=== PATIENT | male | born 2000 | race Hispanic/Latino ===

== ENCOUNTER 2022-01-30 21:10 | Emergency (ER) | payer SELFPAY ==
[~2022-01-30] VITALS: Ht 175.3 cm; Wt 95.3 kg
[2022-01-30 21:15] VITALS: BP 148/82
[2022-01-30] MEDS ORDERED: ACETAMINOPHEN 500 MG TABLET PO ONE (21:30)
[2022-01-30] MEDS ORDERED: GUAIFENESIN-DM 200/20 MG 10 ML PO ONE (21:30)
[2022-01-30] MEDS ORDERED: D-ME1POW16 PO (21:55)
== END 2022-01-30 22:25 | disposition home or self-care (01) ==
LOC: EDH 21:10
DX: U07.1 COVID-19 (principal); J06.9 Acute upper respiratory infection, unspecified; R05.9 Cough, unspecified
CPT/HCPCS: 99283; 87635; 87804 ×2; C9803